=== PATIENT | female | born 1990 | race Caucasian/White ===

== ENCOUNTER 2020-03-02 15:42 | Emergency (ER) | payer OTHER ==
[~2020-03-02] VITALS: Ht 177.8 cm; Wt 99.6 kg
[2020-03-02 15:43] VITALS: BP 158/80
--- NOTE | 2020-03-02 17:32 | NUR ---
MANAGER SOLUTION: PT AMBULATORY WITH STEADY GAIT TO ROOM AT THIS TIME.
== END 2020-03-02 18:55 | disposition home or self-care (01) ==
LOC: ED 18:20
DX: T78.49XA Other allergy, initial encounter (principal); J98.01 Acute bronchospasm; R07.9 Chest pain, unspecified; X58.XXXA Exposure to other specified factors, initial encounter
CPT/HCPCS: 71046; 99283